=== PATIENT | male | born 1975 | race Caucasian/White ===

== ENCOUNTER 2021-03-15 14:24 | Outpatient (CLI) | payer MEDICAID ==
[2021-03-15 20:17] LABS: BASOPHILS % (AUTO) 0.6 %; EOSINOPHILS % (AUTO) 0.3 %; HCT - HEMATOCRIT 43.3 % (42.0-52.0); HGB - HEMOGLOBIN 14.2 g/dL (14.0-18.0); LYMPHOCYTES # (AUTO) 2.3 10^3/uL (1.5-3.5); LYMPHOCYTES % (AUTO) 35.2 %; MEAN CORPUSCULAR HEMOGLOBIN 30.5 pg (27.0-31.0); MEAN CORPUSCULAR HGB CONC 32.8 g/dL (32.0-36.0); MEAN CORPUSCULAR VOLUME 92.9 fL (80.0-94.0); MEAN PLATELET VOLUME 10.1 fL (7.4-11.4); MONOCYTES # (AUTO) 0.7 10^3/uL (0.0-1.0); MONOCYTES % (AUTO) 10.3 %; NEUTROPHILS # (AUTO) 3.4 10^3/uL (1.5-6.6); NEUTROPHILS % (AUTO) 53.3 %; PLT - PLATELET COUNT 260 10^3/uL (130-450); RED BLOOD COUNT 4.66 10^6/uL (4.70-6.10); RED CELL DISTRIBUTION WIDTH 12.5 % (12.0-15.0); WHITE BLOOD COUNT 6.4 x10^3/uL (4.8-10.8)
[2021-03-15 20:45] LABS: ALBUMIN 4.4 g/dL (3.2-5.5); ALBUMIN/GLOBULIN RATIO 1.4 (1.0-2.2); ALKALINE PHOSPHATASE 75 IU/L (42-121); ALT ALANINE AMINOTRANSFERASE 20 IU/L (10-60); AST ASPARTATE AMINOTRANSFERASE 19 IU/L (10-42); BILIRUBIN,TOTAL 0.5 mg/dL (0.2-1.0); BUN - BLOOD UREA NITROGEN 17 mg/dL (6-20); CALCIUM 9.2 mg/dL (8.5-10.3); CARBON DIOXIDE - CO2 30 mmol/L (21-32); CHLORIDE 101 mmol/L (101-111); CHOL/HDL RATIO 4.9 (<5.0); CHOLESTEROL 181 mg/dL; CREATININE 0.6 mg/dL (0.6-1.2); GFR - MDRD 146 (>89); GLUCOSE 93 mg/dL (70-100); HDL CHOLESTEROL 37 mg/dL; LDL CHOLESTEROL,CALCULATED 75 mg/dL; POTASSIUM 4.1 mmol/L (3.5-5.0); SODIUM 140 mmol/L (135-145); TOTAL PROTEIN 7.6 g/dL (6.7-8.2); TRIGLYCERIDES 346 mg/dL; VLDL CHOLESTEROL 69 mg/dL
== END 2021-03-15 14:25 | disposition home or self-care (01) ==
LOC: LAB.S 14:24
PROVIDERS: ATTEND Internal Medicine
DX: R19.7 Diarrhea, unspecified (principal); Z13.220 Encounter for screening for lipoid disorders
CPT/HCPCS: 36415; 80053; 80061; 83721; 85025

== ENCOUNTER 2022-04-21 11:17 | Outpatient (CLI) | payer MEDICAID ==
[2022-04-21 14:54] LABS: BASOPHILS % (AUTO) 0.5 %; EOSINOPHILS % (AUTO) 0.5 %; HCT - HEMATOCRIT 45.5 % (42.0-52.0); LYMPHOCYTES # (AUTO) 2.2 10^3/uL (1.5-3.5); LYMPHOCYTES % (AUTO) 37.4 %; MEAN CORPUSCULAR HEMOGLOBIN 31.1 pg (27.0-31.0); MEAN CORPUSCULAR VOLUME 94.4 fL (80.0-94.0); MEAN PLATELET VOLUME 10.1 fL (7.4-11.4); MONOCYTES # (AUTO) 0.5 10^3/uL (0.0-1.0); MONOCYTES % (AUTO) 8.4 %; NEUTROPHILS # (AUTO) 3.1 10^3/uL (1.5-6.6); NEUTROPHILS % (AUTO) 52.9 %; PLT - PLATELET COUNT 258 10^3/uL (130-450); PT - PROTHROMBIN TIME 11.4 secs (9.9-12.6); RED BLOOD COUNT 4.82 10^6/uL (4.70-6.10); RED CELL DISTRIBUTION WIDTH 11.9 % (12.0-15.0); WHITE BLOOD COUNT 5.8 x10^3/uL (4.8-10.8)
[2022-04-21 15:14] LABS: ALBUMIN 4.4 g/dL (3.2-5.5); ALBUMIN/GLOBULIN RATIO 1.2 (1.0-2.2); ALKALINE PHOSPHATASE 62 IU/L (42-121); ALT ALANINE AMINOTRANSFERASE 17 IU/L (10-60); AST ASPARTATE AMINOTRANSFERASE 18 IU/L (10-42); BILIRUBIN,TOTAL 0.7 mg/dL (0.2-1.0); BUN - BLOOD UREA NITROGEN 18 mg/dL (6-20); CALCIUM 9.2 mg/dL (8.5-10.3); CARBON DIOXIDE - CO2 26 mmol/L (21-32); CHLORIDE 106 mmol/L (101-111); CHOL/HDL RATIO 5.4 (<5.0); CHOLESTEROL 226 mg/dL; CREATININE 0.7 mg/dL (0.6-1.2); GFR - MDRD 122 (>89); GLUCOSE 95 mg/dL (70-100); HDL CHOLESTEROL 42 mg/dL; LDL CHOLESTEROL,CALCULATED 113 mg/dL; LDL/HDL RATIO 2.7 (<3.6); POTASSIUM 4.1 mmol/L (3.5-5.0); SODIUM 139 mmol/L (135-145); TRIGLYCERIDES 355 mg/dL; VLDL CHOLESTEROL 71 mg/dL
[2022-04-21 15:24] LABS: THYROID STIMULATING HORMONE 1.43 uIU/mL (0.34-5.60)
[2022-04-22 19:08] LABS: T-TRANSGLUTAMINASE (TTG) IGA <2 U/mL (0-3); T-TRANSGLUTAMINASE (TTG) IGG 2 U/mL (0-5)
== END 2022-04-21 11:18 | disposition home or self-care (01) ==
LOC: LAB.S 11:17
PROVIDERS: ATTEND Registered Nurse
DX: K52.9 Noninfective gastroenteritis and colitis, unspecified (principal); R19.4 Change in bowel habit; K62.5 Hemorrhage of anus and rectum; Z87.19 Personal history of other diseases of the digestive system; Z13.220 Encounter for screening for lipoid disorders; Z13.29 Encounter for screening for other suspected endocrine disorder
CPT/HCPCS: 36415; 80053; 80061; 83516; 83721; 84153; 84443; 85025; 85610; 86364

== ENCOUNTER 2022-05-09 11:59 | Day surgery (SDC) | payer MEDICAID ==
--- NOTE | 2022-05-09 12:05 | ANESTHESIA ---
Pre-Anesthesia VS, & Labs - Diagnosis heartburn, bloody diarrhea - Procedure EGD, colonoscopy - NPO Other (prep as directed) Home Medications and Allergies Home Medications: Ambulatory Orders Acetaminophen [Tylenol Arthritis] 650 mg PO DAILY 05/06/22 Loratadine [Claritin] 10 mg PO DAILY 05/06/22 Acetaminophen [Tylenol Arthritis] 650 mg PO DAILY 05/06/22 Loratadine [Claritin] 10 mg PO DAILY 05/06/22 Anes History & Medical History - Anesthetic History Anesthesia Complications: reports: No previous complications - Medical History Cardiovascular: reports: None Pulmonary: reports: Pneumonia, Other Gastrointestinal: reports: GERD, Other Musculoskeletal: reports: Scoliosis Skin: reports: None Exam General: Alert, Oriented x3, Cooperative Dental: WNL Mouth Opening: Greater than 4 Fingerbreadths Neck Mobility: Normal Mallampati classification: I Respiratory: Lungs clear Cardiovascular: Regular rate Plan Anesthesia Type: Total IV Consent for Procedure(s) Verified and Reviewed: Yes Code Status: Attempt Resuscitation ASA classification: 2-Mild systemic disease Is this case an emergency?: No
[2022-05-09] MEDS ORDERED: PROPOFOL 500 MG/50 ML 500 MG/50 ML VIAL ONE (12:07)
[2022-05-09] MEDS ORDERED: LIDOCAINE-MPF 2% 5 ML VIAL ONE (12:08)
[2022-05-09] MEDS ORDERED: LACTATED RINGERS 1,000 ML IV ONE (12:30)
[2022-05-09] MEDS ORDERED: PROPOFOL 200 MG/20 ML VIAL IVP ONE (13:29)
[2022-05-09] MEDS ORDERED: LACTATED RINGERS 500 ML IV ONE (13:44)
[2022-05-09 14:29] VITALS: BP 128/74
== END 2022-05-09 12:00 | disposition home or self-care (01) ==
LOC: SDS 11:59
PROVIDERS: ATTEND Surgery
PROC: 0DB38ZX Excision of Lower Esophagus, Via Natural or Artificial Opening Endoscopic, Diagnostic (ICD-10-PCS; 2022-05-09)
PROC: 0DB78ZX Excision of Stomach, Pylorus, Via Natural or Artificial Opening Endoscopic, Diagnostic (ICD-10-PCS; 2022-05-09)
PROC: 0DB28ZX Excision of Middle Esophagus, Via Natural or Artificial Opening Endoscopic, Diagnostic (ICD-10-PCS; 2022-05-09)
PROC: 0DBG8ZX Excision of Left Large Intestine, Via Natural or Artificial Opening Endoscopic, Diagnostic (ICD-10-PCS; principal; 2022-05-09 13:00)
PROC: 0DBF8ZX Excision of Right Large Intestine, Via Natural or Artificial Opening Endoscopic, Diagnostic (ICD-10-PCS; 2022-05-09 13:00)
DX: K57.31 Diverticulosis of large intestine without perforation or abscess with bleeding (principal); K21.9 Gastro-esophageal reflux disease without esophagitis; K29.70 Gastritis, unspecified, without bleeding; K25.9 Gastric ulcer, unspecified as acute or chronic, without hemorrhage or perforation; K64.8 Other hemorrhoids; R19.7 Diarrhea, unspecified
CPT/HCPCS: 43239; 45380; J7120

== ENCOUNTER 2023-04-09 13:52 | Outpatient (CLI) | payer MEDICAID ==
--- NOTE | 2023-04-09 14:38 | Sleep Patient Instructions ---
Sleep Center Visit Summary - Patient Visit Information Reason for Visit: Initial consult for evaluation of sleep disordered breathing and other sleep issues. - Patient Instructions Instructions Attached: Sleep Study, Sleep Study Home Monitor Additional Instructions: You will be completing a sleep study, either an in-lab polysomnography (PSG) or home sleep study (HST). You will follow-up in the sleep care office after the sleep study is completed to hear the results and talk about therapy, if needed. You will be called by our office staff to schedule this appointment, but you may contact us with any questions. - Clinic Information Contact: [facility] [address] [place] [id number] [email or web address] T: [phone]
--- NOTE | 2023-04-09 14:42 | SLEEP CARE CONSULTATION ---
Information from patient questionnaire entered by Dimas Shoemaker. I have reviewed and concur with the information entered by Dimas Shoemaker. This document represents the service I personally performed and the decisions made by me, Diana Flores ARNP. History of Present Illness Service Date and Time: 04/09/2023 1352 Reason for Visit: New patient Chief Complaint: reports: Insomnia, Unrefreshed sleep, Snoring, Excessive daytime sleepiness, Observed pauses in breathing, Fatigue, Frequent awakenings at night Date of Onset: LIFE LONG WORSE LAST FIVE YRS Usual bedtime: 10PM Time it takes to fall asleep: 1-3HRS Snores at night: Yes Observed to quit breathing while asleep: Yes Sleeps alone due to snoring: No Number of times waking at night: 3-6 Reasons for waking at night: reports: Choking, Gasping for air, Bathroom, Other (UNKNOWN mainly) Toss, Turn, or Twitch while sleeping: Yes Recalls having dreams: Yes Usually gets out of bed at: 8AM Feels refreshed in the morning: No Morning headache: Yes (3-4 days a week; gone by 10-11 AM) Sleepy or fatigued during the day: Yes Ever fallen asleep while driving: No Takes day naps: Yes (5 days a week, 30 mins to 2 hours; early afternoon) Dreams during day naps: Yes Prior sleep studies: No Additional HPI information: I had the pleasure of seeing NICOLASA VILLALTA today regarding the possibility of him having a sleep disorder. His current complaints are excessive daytime sleepiness, fatigue, frequent night awakenings, observed pauses in breathing, snoring and unrefreshed sleep. He says in general he has sleep trouble and always has but worse in last 5 years. He says that many family members have been diagnosed with sleep apnea. He says when they were visiting, they told him he snored "heavily" with sharp inhalations and stopping breathing. He has had times when he woke up gasping for breath in the past. He spoke with PCP and was sent here for evaluation. He says he can take 1-3 hours to fall asleep. He has tried different night time routines as well as sleep aides, including melatonin, but no resolution of his issues. - Parasomnia Symptoms Ever been unable to move upon waking from sleep: Yes (rarely happens) Walks in sleep: No Talks in sleep: Yes Ever acted out dreams in sleep: No Ever felt weak in the knees when startled or emotional: Yes (has fallen to ground couple times overall) Bothered by creepy, crawly, restless sensations in legs: Yes (every night when trying to fall asleep; move legs while sleeping) Problems with memory or concentration: Yes (both) Subjective Initial [place] Sleepiness Scale score: 10 (04/07/23) Past Medical History Past Medical History: reports: Arthritis, Fibromyalgia, Anxiety, Depression, Mood disorder (complex post traumatic stress disorder), GERD, Attention deficit, Other (IBS, ESOPHGENAL SPASMS AUTISM SPECTRUM DISORDER GENDER DYSPHORIA MYOFASCIAL PAIN) Social History The patient's occupation is a NOT EMPLOYED. Patient is and lives in [place]. Have you smoked in the past 12 months: No Cigarettes per day (20/pack): 15 Years of smokin Quit date: 2011 Smoking Pack Years: 4.9 Alcohol use: Yes Alcohol amount and frequency: 1 GLASS OF WINE ONCE A WEEK Caffeine use: Yes Caffeine amount and frequency: 2 CUPS OF TEA DAILY BEFORE 2PM Family History Family history of sleep disordered breathing: Yes Family Hx Sleep Apnea: Mother: Snoring, Sleep apnea - Treated, Sibling: Snoring, Sleep apnea - Treated, Grandparent: Snoring, Sleep apnea - Treated, Sleep apnea - Untreated Allergies and Home Medications Known drug allergies: Yes (PCN, LAMOTRAGINE) Drug allergies reviewed: Yes Home medication list reviewed: Yes (as updated in EMR) Allergy and home medication list: Allergies No Known Drug Allergies Allergy (Verified 04/08/23 10:49) Home Medications Medication Instructions Recorded Confirmed Last Taken Type Acetaminophen [Tylenol Arthritis] 650 mg PO DAILY 05/06/22 04/09/23 05/05/22 History Loratadine [Claritin] 10 mg PO DAILY 05/06/22 04/09/23 05/08/22 History Fluoxetine HCl [Prozac] See Rx Instructions .ROUTE .COMPLEX 04/09/23 04/09/23 Unknown History Lisdexamfetamine Dimesylate See Rx Instructions .ROUTE .COMPLEX 04/09/23 04/09/23 Unknown History [Vyvanse] Omeprazole See Rx Instructions .ROUTE .COMPLEX 04/09/23 04/09/23 Unknown History Spironolactone [Aldactone] See Rx Instructions .ROUTE .COMPLEX 04/09/23 04/09/23 Unknown History Tamsulosin [Flomax] See Rx Instructions .ROUTE .COMPLEX 04/09/23 04/09/23 Unknown History hydrOXYzine HCL [Hydroxyzine HCl] See Rx Instructions .ROUTE .COMPLEX 04/09/23 04/09/23 Unknown History methocarbamoL [Methocarbamol] See Rx Instructions .ROUTE .COMPLEX 04/09/23 04/09/23 Unknown History Review of Systems Weight gain over past 5 years: 10, currently up by 10 Weight loss over past 5 years: 45 Cardiovascular: denies: high blood pressure Respiratory: reports: shortness of breath, chronic cough Gastrointestinal: reports: heartburn, difficulty swallowing, nausea, diarrhea, abdominal pain Urinary: reports: incontinence, frequency, urgency Neurological: reports: headaches, disorientation, gait or balance problems Psychiatric: reports: Attention Deficit Hyperactivity, anxiety, depression, mood disorder Ear/Nose/Throat: reports: dry mouth/throat, wisdom teeth removed. denies: tonsillectomy Endocrine: reports: sluggishness, too hot or cold, excessive thirst, unexplained weakness Musculoskeletal: reports: joint pain, neck pain, back pain, muscle pain or cramping Immunologic: reports: sneezing, allergies to food or environment Physical Exam Vital signs obtained and entered by: DIMAS Sanchez MA Blood Pressure: 126/98 Heart Rate: 97 O2 Saturation: 98 Height: 5 ft 11 in Weight: 163 lb 12.8 oz Body Mass Index: 22.8 BMI Classification: Normal Neck circumference: 14 (inches) Mouth and throat: narrow oropharynx Soft palate: normal Hard palate: normal Uvula: normal Uvula visualization: 50% Mallampati Class II Tongue: enlarged in size with teeth romero on lateral edges Tonsils: small Neck: normal w/o lymphadenopathy or thyromegaly Heart: regular rate and rhythm Lungs: clear bilaterally Impression and Plan 1. Suspected Obstructive Sleep Apnea-Hypopnea Syndrome, as suggested by a history of loud and irregular snoring, observed cessation of breath while asleep, gasping or choking in sleep, morning headache, frequent awakening during the night, unrefreshed sleep, cognitive impairment, and excessive daytime sleepiness. Narrow oropharynx and obesity are common predisposing factors for obstructive sleep apnea-hypopnea syndrome. I recommend proceeding to polysomnography to confirm the diagnosis and to assess severity. If the patient has significant sleep disordered breathing, a manual CPAP titration study will also be performed to find the optimal treatment pressure. I informed the patient of what the sleep studies involve and after some discussion, obtained agreement to proceed. The pathophysiology of obstructive sleep apnea-hypopnea syndrome was discussed with the patient and health risks of cardiovascular and cerebrovascular disease if not treated. Risks of drowsy driving discussed in detail and patient advised to avoid long distance driving and to cake puller at the first sign of drowsiness. Patient agreed to plan. * Schedule polysomnography +- manual CPAP titration study and return in 1-2 weeks after the study to discuss result and initiate therapy. * Avoid long distance driving or driving when feeling sleepy. * Avoid alcohol, sedative and muscle relaxant around bedtime. * Attempt to lose weight. * Review instructions provided by trained office staff on how to prepare for the sleep study. * Return for follow-up after sleep study completed. Follow up with Sleep Care in: other (after sleep study) Plan: PSG/HST Visit Type: In Office Time Spent with Patient (minutes): 32 Provider Statement: I spent 100% of the Face to Face Visit with the patient with greater than 50% spent counseling the patient and coordination of care.
[2023-04-09 14:48] VITALS: BP 126/98; O2SAT 98
== END 2023-04-09 13:53 | disposition home or self-care (01) ==
LOC: SC 13:52
PROVIDERS: ATTEND Nurse Practitioner Family
DX: G47.10 Hypersomnia, unspecified (principal); R53.83 Other fatigue; G47.8 Other sleep disorders; R06.81 Apnea, not elsewhere classified; R06.83 Snoring; R51.9 Headache, unspecified; R41.89 Other symptoms and signs involving cognitive functions and awareness; Z87.891 Personal history of nicotine dependence
CPT/HCPCS: 99203; 99212

== ENCOUNTER 2023-06-08 09:31 | Outpatient (CLI) | payer MEDICAID | END 2023-06-08 09:32 | disposition home or self-care (01) | LOC: SC 09:31 | PROVIDERS: ATTEND Nurse Practitioner Family | DX: G47.33 Obstructive sleep apnea (adult) (pediatric) (principal); R09.02 Hypoxemia; R00.0 Tachycardia, unspecified | CPT/HCPCS: 95806 ==

== ENCOUNTER 2023-07-03 09:51 | Outpatient (CLI) | payer MEDICAID ==
--- NOTE | 2023-07-03 10:30 | Sleep Patient Instructions ---
Sleep Center Visit Summary - Patient Visit Information Reason for Visit: Sleep study follow-up - Patient Instructions Instructions Attached: CPAP Additional Instructions: You are being started on CPAP therapy with pressure setting at 4-15 cmH2O. You will need to call the sleep care office to set up your follow up once you have your CPAP machine to check compliance and response to therapy at that time. You may call the office with any concerns about pressure feeling too low or too much for adjustment, if needed. You should contact DME supplier for any questions or concerns about mask or equipment. Please call office to schedule a follow up appointment in the sleep care office one month after obtaining new device. - Clinic Information Contact: [facility] [address] [place] [address] [email or web address] T: [phone]
--- NOTE | 2023-07-03 10:33 | SLEEP CARE CONSULTATION ---
Information from patient questionnaire entered by Shereen Shoemaker. I have reviewed and concur with the information entered by Shereen Shoemaker. This document represents the service I personally performed and the decisions made by me, Diana Flores ARNP. History of Present Illness Service Date and Time: 07/03/2023 0951 Initial [place] Sleepiness Scale score: 10 (04/07/23) Current [place] Sleepiness Scale score: 17 Additional HPI information: NICOLASA VILLALTA returns for follow up and results of the recently performed home sleep study. The sleep study showed severe obstructive sleep apnea with an average AHI of 32.6 and amina oxygen saturation of 82%. Elevated heart rate recorded at maximum 157 beats per minute. I explained the pathophysiology behind obstructive sleep apnea. We then spent quite a bit of time discussing different treatment options. For mild obstructive sleep apnea, surgery and oral appliance are alternatives to nasal CPAP therapy but in moderate or severe cases, nasal CPAP is the most effective and reliable treatment. Because apnea is primarily in supine position, then positional management therapy could be effective. Methods discussed such as positioning with pillows, using a T-shirt with tennis balls in the back or commercial products that have a pillow format on back to prevent supine sleep. After some discussion, the patient opted to go with the nasal CPAP therapy. Nasal autoCPAP set at 4-15 cmH20 will be ordered with rationale explained. A manual titration study will be ordered if unable to find optimal pressure with office adjustments. I explained how CPAP machine works and what to expect when using the machine. Using CPAP every night in order to get used to it was emphasized. Patient advised to put CPAP mask on before getting into bed so as not to fall asleep without CPAP. To assist acclimation to CPAP use, it could also be used for a short time during day while reading or watching TV. The patient was instructed to call the CPAP supplier to discuss any mechanical problem that may occur. If the mask given is uncomfortable or is difficult to keep on through the night even with adjustment, contact the CPAP supplier as many will replace with another mask style if notified before 30 days. If snoring or perceives is not getting enough air or too much air from the machine, notify this office. Patient counseled not drink alcohol less than 4 hours before bedtime as it can increase snoring and apnea. Patient was cautioned about risks of drowsy driving until sleepiness symptoms resolve. Sleep Study - Results Type of Sleep Study: Home sleep study (COMPLETED 06/08/23) Prior sleep studies: No Polysomnography/Home Sleep Study results: Physician Impression: The quality of the study is fair due to partial loss of pulse oximetry signal . The length of the study is adequate (> 240 minutes). Please also see the tabulated and graphic data. 1. Obstructive Sleep Apnea-Hypopnea (ICD-10 G47.33), severe, with an AHI of 32.6/hr and amina SaO2 of 82%. During the study, the patient had 176 apneas (176 obstructive, 0 central, 0 mixed) and 14 hypopneas. The longest episode lasted 73.0 seconds. The patient slept mostly supine (supine AHI was 37.1 and non-supine, 1.35). 2. Hypoxemia (ICD-10 R09.02), mild, with the lowest oxygen saturation of 82 % and 47.8 minutes with SaO2 under 90%. Baseline oxygen saturation was normal (Average oxygen saturation was 91%). 3. Tachycardia, with maximum recoded heart rate of 157 beats per minute. Allergies and Home Medications Known drug allergies: No Drug allergies reviewed: Yes Home medication list reviewed: Yes (Lurasidone) Allergy and home medication list: Allergies No Known Drug Allergies Allergy (Verified 07/01/23 10:57) Review of Systems Review of systems same as previous: Yes (no changes) Physical Exam Vital signs obtained and entered by: DIANA WALTERS Blood Pressure: 124/79 Cuff size: regular (right arm) Heart Rate: 96 O2 Saturation: 90 Height: 5 ft 11 in Weight: 170 lb 6.4 oz Body Mass Index: 23.8 BMI Classification: Normal Impression and Plan 1. Obstructive Sleep Apnea-Hypopnea Syndrome, severe, with lowest oxygen saturation of 82%. Obviously this is the cause of the patients symptoms of unrefreshed sleep, and excessive daytime sleepiness. Positive pressure therapy could benefit anxiety, depression, mood disorder, gastric reflux and attention deficit. As mentioned above, the patient will be started on nasal autoCPAP therapy with pressure set at 4-15 cmH2O. A manual titration study will be completed if unable to find optimal treatment pressure with office adjustments. Compliance guidelines also reviewed. A copy of compliance guidelines will be given for reference at check out. Because the apnea is more severe supine, I instructed to avoid sleeping supine using pillow positioning until able to start CPAP use. 2. Hypoxemia, mild, with a amina oxygen saturation of 82% and 47.8 minutes spent under 90%. The baseline oxygen saturation was normal with an average oxygen saturation of 91%. 3. Tachycardia. Cardiac monitoring recorded maximum heart rate of 157 during sleep study. I recommended he follow up with primary provider for further cardiac monitoring as needed. * Nasal auto CPAP therapy, pressure at 4-15 cmH2O. * Avoid alcohol consumption near bedtime. * Avoid supine sleep until using CPAP. * The patient is again cautioned about driving until sleepiness completely resolves. * Return one month after CPAP obtained. I will assess response to therapy and compliance at that time. Counseling Topics: Weight control Prescriptions: Auto CPAP Plan: start CPAP and compliance followup Visit Type: In Office Time Spent with Patient (minutes): 20 Provider Statement: I spent 100% of the Face to Face Visit with the patient with greater than 50% spent counseling the patient and coordination of care.
[2023-07-03 10:36] VITALS: BP 124/79; O2SAT 90
== END 2023-07-03 09:52 | disposition home or self-care (01) ==
LOC: SC 09:51
PROVIDERS: ATTEND Nurse Practitioner Family
DX: G47.33 Obstructive sleep apnea (adult) (pediatric) (principal); R09.02 Hypoxemia; R00.0 Tachycardia, unspecified
CPT/HCPCS: 99212; 99213

== ENCOUNTER 2023-11-13 08:12 | Outpatient (CLI) | payer MEDICAID ==
--- NOTE | 2023-11-13 08:43 | Sleep Patient Instructions ---
Sleep Center Visit Summary - Patient Visit Information Reason for Visit: First compliance for PAP therapy - Patient Instructions Additional Instructions: You were here for follow up of CPAP therapy. You will be continued on CPAP therapy with pressure at 4-6 cmH2O. Please let us know if the pressure change is uncomfortable and we can make further adjustments of the pressure. You should follow up with sleep care in 1-2 months. You may contact us sooner for any questions or concerns. - Clinic Information Contact: [facility] [address] [place] [address] [email or web address] T: [phone]
--- NOTE | 2023-11-13 08:47 | SLEEP CARE CONSULTATION ---
Information from patient questionnaire entered by Dimas Shoemaker. I have reviewed and concur with the information entered by Dimas Shoemaker. This document represents the service I personally performed and the decisions made by me, Diana Flores ARNP. History of Present Illness Service Date and Time: 11/13/2023 08 Previous diagnosis: Severe, Obstructive Sleep Apnea-Hypopnea Syndrome AHI: 32.6 (05/2023) Reason for follow up: first compliance Equipment type: CPAP (RESMED Airsense 11 S/U 09/10/23) Equipment obtained from: Other ([employer], getting supplies) Mask style: Nasal pillows Mask brand: Resmed (AirFit P10) Backup mask available: No Prior sleep studies: No Type of Sleep Study: Home sleep study (COMPLETED 06/08/23) HPI additional information: NICOLASA VILLALTA was diagnosed to have severe, AHI 32.6, obstructive sleep apnea-hypopnea syndrome and returned today for CPAP therapy first compliance follow-up. Sleep Study - Results Type of Sleep Study: Home sleep study (COMPLETED 06/08/23) Prior sleep studies: No CPAP Compliance Data - Data Reviewed with Patient Average duration of nightly device use: 5 hours 8 minutes Compliance rate %: 47 (30/30 days used) Current pressure setting (cmH2O): 4-7 Average residual AHI: 7.1 Central apnea: 4.1 Obstructive apnea: 1.2 Hypopnea: 1.6 Average large leak: 0.2 L/min Compliance data discussion: He has a hard time falling asleep. He has taken the mask off while sleeping. He is putting the mask on nightly. Subjective Missed days of use due to: reports: mask issues Patient concerns: reports: mask discomfort, other (AIR ESCAPING WHILE TALKING). denies: aerophagia, air blowing in eyes, mask leak noise, condensation in mask/hose, nasal congestion, dry mouth, nose, throat, epistaxis Observed to snore while using device: No Current pressure setting perceived as: comfortable On therapy, patient: reports: sleeping better, more rested overall. denies: drowsiness while driving Initial [place] Sleepiness Scale score: 10 (04/07/23) Current [place] Sleepiness Scale score: 15 (11/13/23) Allergies and Home Medications Known drug allergies: No Drug allergies reviewed: Yes Home medication list reviewed: Yes (no changes) Allergy and home medication list: Allergies No Known Drug Allergies Allergy (Verified 11/13/23 08:20) Review of Systems Review of systems same as previous: Yes (NO CHANGE) Physical Exam Vital signs obtained and entered by: DIMAS Sanchez MA Blood Pressure: 112/78 (LEFT ARM) Cuff size: regular Heart Rate: 77 O2 Saturation: 98 Height: 5 ft 11 in Weight: 164 lb 6.4 oz Body Mass Index: 22.9 BMI Classification: Normal Impression and Plan 1. Obstructive Sleep Apnea-Hypopnea Syndrome, severe, with fair treatment compliance and fair apnea control with elevated residual AHI. On CPAP therapy, the patient has better sleep quality and is more rested overall. He does put his mask on every night but he does not always sleep for long periods of time or he will take the mask off when sleeping. I noted that his central index is high. The patients pressure will be changed to autoCPAP 4-6 cmH20 for elevation of residual AHI. Patient advised to contact me if pressure change is uncomfortable so that it can be adjusted. Goals for apnea control discussed. Patient's apnea severity and rationale for treatment to reduce apnea, improve sleep quality and reduce cardiovascular and cerebrovascular events was reviewed. I also reviewed the benefit of consistent device use of CPAP for gastric reflux, depression/anxiety, mood disorder and attention deficit. * Change auto CPAP pressure to 4-6 cmH2O * Notify me if snoring with mask or feeling that the pressure is too much or too little * Call this office if any problems using CPAP * Return for follow up in 1-2 months, or sooner if concerns arise Adjust device pressure to (cmH2O): 4-6 Counseling Topics: Spare mask Follow up with Sleep Care in: 1-2 months Visit Type: In Office Time Spent with Patient (minutes): 20 Provider Statement: I spent 100% of the Face to Face Visit with the patient with greater than 50% spent counseling the patient and coordination of care.
[2023-11-13 09:12] VITALS: BP 112/78; O2SAT 98
== END 2023-11-13 08:13 | disposition home or self-care (01) ==
LOC: SC 08:12
PROVIDERS: ATTEND Nurse Practitioner Family
DX: G47.33 Obstructive sleep apnea (adult) (pediatric) (principal)
CPT/HCPCS: 99212; 99213

== ENCOUNTER 2023-11-16 09:12 | Outpatient (CLI) | payer MEDICAID ==
[2023-11-16 15:14] LABS: BASOPHILS % (AUTO) 0.4 %; EOSINOPHILS # (AUTO) 0.1 10^3/uL (0.0-0.7); EOSINOPHILS % (AUTO) 0.8 %; HCT - HEMATOCRIT 44.6 % (42.0-52.0); HGB - HEMOGLOBIN 14.6 g/dL (14.0-18.0); LYMPHOCYTES # (AUTO) 2.4 10^3/uL (1.5-3.5); MEAN CORPUSCULAR HEMOGLOBIN 31.1 pg (27.0-31.0); MEAN CORPUSCULAR HGB CONC 32.7 g/dL (32.0-36.0); MEAN CORPUSCULAR VOLUME 95.1 fL (80.0-94.0); MEAN PLATELET VOLUME 10.3 fL (7.4-11.4); MONOCYTES # (AUTO) 0.7 10^3/uL (0.0-1.0); MONOCYTES % (AUTO) 8.1 %; NEUTROPHILS # (AUTO) 5.6 10^3/uL (1.5-6.6); NEUTROPHILS % (AUTO) 63.3 %; PLT - PLATELET COUNT 314 10^3/uL (130-450); RED BLOOD COUNT 4.69 10^6/uL (4.70-6.10); RED CELL DISTRIBUTION WIDTH 12.9 % (12.0-15.0); WHITE BLOOD COUNT 8.9 x10^3/uL (4.8-10.8)
[2023-11-16 15:43] LABS: ALBUMIN 4.7 g/dL (3.2-5.5); ALBUMIN/GLOBULIN RATIO 1.4 (1.0-2.2); ALKALINE PHOSPHATASE 74 IU/L (42-121); ALT ALANINE AMINOTRANSFERASE 7 IU/L (10-60); AST ASPARTATE AMINOTRANSFERASE 11 IU/L (10-42); BILIRUBIN,TOTAL 0.4 mg/dL (0.2-1.0); BUN - BLOOD UREA NITROGEN 21 mg/dL (6-20); CALCIUM 9.5 mg/dL (8.5-10.3); CARBON DIOXIDE - CO2 24 mmol/L (21-32); CHLORIDE 106 mmol/L (101-111); CHOL/HDL RATIO 6.8 (<5.0); CHOLESTEROL 230 mg/dL; GFR - MDRD 80 (>89); GLUCOSE 118 mg/dL (74-104); HDL CHOLESTEROL 34 mg/dL; POTASSIUM 4.4 mmol/L (3.5-4.5); SODIUM 138 mmol/L (135-145); THYROID STIMULATING HORMONE 1.46 uIU/mL (0.34-5.60); TRIGLYCERIDES 445 mg/dL
[2023-11-16 15:49] LABS: PROLACTIN 24.18 ng/mL
[2023-11-16 16:39] LABS: LDL CHOLESTEROL,DIRECT 136 mg/dL (75-193)
[2023-11-16 21:53] LABS: ESTIMATED AVERAGE GLUCOSE 100 mg/dL (70-100); HEMOGLOBIN A1c% 5.1 % (4.27-6.07)
== END 2023-11-16 09:13 | disposition home or self-care (01) ==
LOC: LAB.S 09:12
PROVIDERS: ATTEND Nurse Practitioner
DX: F31.81 Bipolar II disorder (principal); Z79.899 Other long term (current) drug therapy
CPT/HCPCS: 36415; 80053; 80061; 82607; 82746; 83036; 83721; 84146; 84443; 85025